=== PATIENT | male | born 1990 | race Two or more races ===

== ENCOUNTER 2021-01-27 10:33 | Inpatient (IN) | payer OTHER ==
[~2021-01-27] VITALS: Ht 167.6 cm; Wt 58.3 kg
--- NOTE | 2021-01-27 10:50 | NUR ---
PT BIB [facility] FROM HOME FOR C/O N/V/D SINCE THIS AM. PER PT & EMS, HE HAD 2 SCOOPS OF PROTEIN POWDER YESTERDAY AND HAS HAD SIMILAR REACTION IN THE PAST AFTER TAKING PROTEIN POWDER. 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 FSBS WAS 162 PER EMS, OTHER VSS, HR 60s SR. PT ARRIVES TO ED PALE, DIAPHORETIC, ACTIVELY VOMITING AND HAD DIARRHEA, YELLING D/T ABD PAIN. EKG DONE. POC RV'WD WITH PT. AWAITING ERP.
[2021-01-27] MEDS ORDERED: ONDANSETRON 2MG/ML, 2ML ONE (11:20)
[2021-01-27] MEDS ORDERED: MORPHINE SULFATE 4 MG/ML, 1ML ONE ×2 (11:20→12:46)
[2021-01-27] MEDS: MORPHINE SULFATE 4 MG/ML, 1ML IVPush PRN ×2 (11:23→12:47)
[2021-01-27] MEDS ORDERED: ONDANSETRON 2MG/ML, 2ML IVPush ONE (11:30)
[2021-01-27] MEDS ORDERED: SODIUM CHLORIDE 0.9% 1,000ML IVBOLUS ONE (11:30)
[2021-01-27] MEDS ORDERED: SODIUM CHLORIDE FLUSH 10ML SYR IVF ONE (11:30)
[2021-01-27] MEDS ORDERED: SODIUM CHLORIDE 0.9% 1,000 ML IV ONE ×2 (11:30→15:00)
[2021-01-27 11:33] LABS: MEAN CORPUSCULAR HEMOGLOBIN 31.1 pg (27.5-34.5); MEAN PLATELET VOLUME 10.6 fL (7.4-10.4); PLATELET COUNT 262 x10^3/uL (130-400); RED BLOOD COUNT 5.68 x10^6/uL (4.38-5.82); RED CELL DISTRIBUTION WIDTH 13.7 % (9.4-14.8)
--- NOTE | 2021-01-27 11:34 | NUR ---
PT MEDICATED PER ORDERS. 1L NS BOLUS INFUSING. VERBALIZED IMMEDIATE RELIEF AFTER MORPHINE.
[2021-01-27 11:50] LABS: ALBUMIN 5.8 g/dL (3.4-5.0); ANION GAP 11 mmol/L (5-15); CALCIUM 11.1 mg/dL (8.5-10.1); CHLORIDE 103 mmol/L (98-107)
[2021-01-27 11:54] LABS: ALANINE AMINOTRANSFERASE 54 U/L (12-78); ALKALINE PHOSPHATASE 96 U/L (45-117); BILIRUBIN,TOTAL 1.6 mg/dL (0.2-1.0); CREATINE KINASE, TOTAL 251 U/L (39-308); CREATININE 1.58 mg/dL (0.7-1.3); TOTAL PROTEIN 9.3 g/dL (6.4-8.2)
[2021-01-27 11:56] LABS: MD YES
[2021-01-27 12:00] LABS: BAND#(MANUAL) 1.86 x10^3/uL; BANDS%(MANUAL) 7 % (0-7); LYMPHS% (MANUAL) 3 % (22-44); METAMYELOCYTES# (MANUAL) 0.27 x10^3/uL (0-0); METAMYELOCYTES% (MANUAL) 1 % (0-1); MONOS#(MANUAL) 0.27 x10^3/uL (0.3-2.7); MONOS% (MANUAL) 1 % (2-9); SEG#(MANUAL) 23.32 x10^3/uL (1.8-6.8); SEGS% (MANUAL) 88 % (42-75)
[2021-01-27 12:01] LABS: <PLATELET ESTIMATE> ADEQUATE; <RBC MORPHOLOGY> NORMAL; LARGE PLATELETS 1+; PMNS WITH VACUOLES 1+
--- NOTE | 2021-01-27 12:07 | NUR ---
pt refused CT at 12:00 Wanted to do later.
--- NOTE | 2021-01-27 12:49 | NUR ---
PT SLEEPING IN GURNEY, AWAKENS TO VOICE. REQUESTED SECOND DOSE OF MORPHINE PRIOR TO CT. ERP AWARE PT'S HR DROPS TO 40s AFTER MORPHINE. WILL GIVE ONLY 2MG PER ERP. PT ALSO REQUESTING WATER. RV'WD PLAN FOR CT WITH PT; NPO FOR NOW. PT REMAINS SOMEWHAT DIAPHORETIC. IVF INFUSING.
--- NOTE | 2021-01-27 13:13 | NUR ---
PT TO CT VIA [facility].
--- NOTE | 2021-01-27 13:33 | NUR ---
PT BACK FROM CT. INFORMED OF NEED FOR URINE SAMPLE, INSTRUCTED ON CLEAN CATCH URINE SAMPLE.
[2021-01-27 14:21] LABS: MICROSCOPIC NOT IND
[2021-01-27] MEDS ORDERED: HALOPERIDOL 5 MG/ML ONE (14:52)
[2021-01-27] MEDS ORDERED: VANCOMYCIN PER PHARMACY MC ONE (15:00)
[2021-01-27] MEDS ORDERED: SODIUM CHLORIDE FLUSH 10ML SYR IVF PRN (15:00)
[2021-01-27] MEDS ORDERED: HALOPERIDOL 5 MG/ML IV ONE (15:00)
[2021-01-27] MEDS ORDERED: CEFEPIME 1 GM in DEXTROSE 5% 50 ML IVPB ONE (15:00)
[2021-01-27] MEDS ORDERED: VANCOMYCIN 1,400 MG in SODIUM CHLORIDE 0.9% 250 ML IV ONE (15:00)
--- NOTE | 2021-01-27 15:00 | NUR ---
PT REPORTED DAILY MARIJUANA USE TO ERP. DENIES OTHER DRUG USE.
--- NOTE | 2021-01-27 15:24 | NUR ---
PT STILL HAVING INTERMITTENT VOMITING/DRY HEAVING. MEDICATED WITH HALDOL PER ORDERS. MIVF INFUSING. ABX INFUSING.
[2021-01-27] MEDS ORDERED: VANCOMYCIN PER PHARMACY MC PRN (15:30)
[2021-01-27] MEDS ORDERED: ENALAPRILAT 1.25 MG/ML, 2ML IVPush PRN (15:30)
[2021-01-27] MEDS ORDERED: ACETAMINOPHEN 325 MG TABLET PO PRN (15:30)
--- NOTE | 2021-01-27 15:30 | NUR ---
PT C/O ABD PAIN AGAIN. MEDICATED WITH REMAINDER OF MORPHINE DOSE (2MG). TO BE TRANSPORTED UPSTAIRS SOON. PT UNDERSTANDS POC. PT HAS REFUSED CHANGING OUT OF HIS PANTS AT THIS TIME.
[2021-01-27 15:42] LABS: TROPONIN I < 0.015 ng/mL (0.000-0.045)
[2021-01-27 17:00] VITALS: BP 137/94
[2021-01-27] MEDS: HEPARIN 5,000 UNITS/ML, 1ML SQ SCH (17:07)
[2021-01-27 17:26] VITALS: BP 137/94
[2021-01-27] MEDS ORDERED: PHARMACOKINETIC MONITORING MC PRN (17:30)
[2021-01-27] MEDS ORDERED: PHARMACOKINETIC CONSULTATION MC ONE (17:30)
[2021-01-27 19:12] VITALS: BP 93/55
[2021-01-27] MEDS: ONDANSETRON 2MG/ML, 2ML IVPush PRN (19:35)
[2021-01-27] MEDS: LACTATED RINGERS 1,000 ML IV SCH (19:35)
[2021-01-27 20:25] VITALS: BP 114/68
[2021-01-27 21:22] LABS: TROPONIN I < 0.015 ng/mL (0.000-0.045)
[2021-01-27] MEDS: morphine SULFATE 10 MG/ML, 1ML IVPush PRN (23:09)
[2021-01-28 00:24] VITALS: BP 112/67
[2021-01-28] MEDS: HEPARIN 5,000 UNITS/ML, 1ML SQ SCH ×3 (01:15→20:00)
[2021-01-28] MEDS: PROMETHAZINE 25 MG/ML, 1ML IM PRN ×2 (01:26→04:30)
[2021-01-28] MEDS: morphine SULFATE 10 MG/ML, 1ML IVPush PRN ×3 (03:04→10:02)
[2021-01-28] MEDS: LACTATED RINGERS 1,000 ML IV SCH ×3 (03:35→21:40)
[2021-01-28 05:38] LABS: MEAN CORPUSCULAR HEMOGLOBIN 31.6 pg (27.5-34.5); MEAN CORPUSCULAR HGB CONC 34.5 g/dL (33.2-36.2); PLATELET COUNT 181 x10^3/uL (130-400); RED BLOOD COUNT 4.44 x10^6/uL (4.38-5.82); RED CELL DISTRIBUTION WIDTH 13.6 % (9.4-14.8)
[2021-01-28 05:52] LABS: CHLORIDE 111 mmol/L (98-107)
[2021-01-28 06:02] LABS: ALANINE AMINOTRANSFERASE 38 U/L (12-78); ALBUMIN 3.8 g/dL (3.4-5.0); ALKALINE PHOSPHATASE 62 U/L (45-117); ANION GAP 6 mmol/L (5-15); BILIRUBIN,TOTAL 0.9 mg/dL (0.2-1.0); CALCIUM 8.5 mg/dL (8.5-10.1); CREATININE 1.11 mg/dL (0.7-1.3); TOTAL PROTEIN 6.8 g/dL (6.4-8.2)
[2021-01-28 06:21] LABS: MD YES
[2021-01-28 06:22] LABS: <PLATELET ESTIMATE> DECREASED; <RBC MORPHOLOGY> NORMAL; BAND#(MANUAL) 2.06 x10^3/uL; BANDS%(MANUAL) 12 % (0-7); LYMPH#(MANUAL) 1.03 x10^3/uL (1-3.4); LYMPHS% (MANUAL) 6 % (22-44); MONOS#(MANUAL) 0.34 x10^3/uL (0.3-2.7); MONOS% (MANUAL) 2 % (2-9); SEG#(MANUAL) 13.76 x10^3/uL (1.8-6.8); SEGS% (MANUAL) 80 % (42-75)
[2021-01-28 06:23] LABS: LARGE PLATELETS 1+
[2021-01-28 09:04] VITALS: BP 100/51
[2021-01-28] MEDS: PANTOPRAZOLE 40 MG IV IVPush SCH (10:02)
[2021-01-28] MEDS: ONDANSETRON 2MG/ML, 2ML IVPush PRN (10:02)
[2021-01-28] MEDS: SUCRALFATE 1 GM/10 ML UDC PO SCH ×4 (10:02→20:02)
[2021-01-28] MEDS: VANCOMYCIN 1,100 MG in SODIUM CHLORIDE 0.9% 250 ML IV SCH (11:16)
[2021-01-28 15:24] VITALS: BP 110/64
[2021-01-28] MEDS ORDERED: CEFTRIAXONE 1,000 MG in DEXTROSE 5% 50 ML IVPB SCH (15:30)
[2021-01-28 15:56] LABS: MICROSCOPIC NOT IND
[2021-01-28 19:22] VITALS: BP 108/68
[2021-01-28] MEDS: MELATONIN 5 MG TABLET PO PRN (21:41)
[2021-01-29 00:29] VITALS: BP 111/82
[2021-01-29] MEDS: HEPARIN 5,000 UNITS/ML, 1ML SQ SCH ×4 (04:00→20:29)
[2021-01-29] MEDS: LACTATED RINGERS 1,000 ML IV SCH ×2 (05:25→13:51)
[2021-01-29] MEDS: VANCOMYCIN 1,100 MG in SODIUM CHLORIDE 0.9% 250 ML IV SCH (05:25)
[2021-01-29 05:41] LABS: BASOPHILS % (AUTO) 0 % (0-1); EOSINOPHILS % (AUTO) 1 % (1-7); LYMPHOCYTES % (AUTO) 24 % (22-44); MEAN CORPUSCULAR HEMOGLOBIN 31.3 pg (27.5-34.5); MEAN CORPUSCULAR HGB CONC 34.2 g/dL (33.2-36.2); MEAN PLATELET VOLUME 10.7 fL (7.4-10.4); MONOCYTES % (AUTO) 11 % (2-9); NEUTROPHILS % (AUTO) 63 % (42-75); PLATELET COUNT 164 x10^3/uL (130-400); RED BLOOD COUNT 4.36 x10^6/uL (4.38-5.82); RED CELL DISTRIBUTION WIDTH 13.3 % (9.4-14.8)
[2021-01-29 05:46] LABS: ALANINE AMINOTRANSFERASE 32 U/L (12-78); ALBUMIN 3.5 g/dL (3.4-5.0); CALCIUM 8.8 mg/dL (8.5-10.1); CHLORIDE 110 mmol/L (98-107); CREATININE 1.04 mg/dL (0.7-1.3)
[2021-01-29 05:48] LABS: ALKALINE PHOSPHATASE 49 U/L (45-117); BILIRUBIN,TOTAL 0.4 mg/dL (0.2-1.0); TOTAL PROTEIN 6.1 g/dL (6.4-8.2)
[2021-01-29 05:55] LABS: ANION GAP 4 mmol/L (5-15)
[2021-01-29 06:23] VITALS: BP 114/68
[2021-01-29] MEDS: SUCRALFATE 1 GM/10 ML UDC PO SCH ×4 (06:24→20:29)
[2021-01-29] MEDS: morphine SULFATE 10 MG/ML, 1ML IVPush PRN ×4 (06:25→23:31)
[2021-01-29 06:49] LABS: MD SCAN
[2021-01-29] MEDS: PANTOPRAZOLE 40 MG IV IVPush SCH (09:35)
[2021-01-29 12:25] VITALS: BP 121/76
[2021-01-29 19:20] VITALS: BP 129/83
[2021-01-29] MEDS: MELATONIN 5 MG TABLET PO PRN (21:40)
[2021-01-29] MEDS: ONDANSETRON 2MG/ML, 2ML IVPush PRN (23:31)
[2021-01-30 01:28] VITALS: BP 132/86
[2021-01-30] MEDS: morphine SULFATE 10 MG/ML, 1ML IVPush PRN (04:55)
[2021-01-30] MEDS: HEPARIN 5,000 UNITS/ML, 1ML SQ SCH (04:56)
[2021-01-30] MEDS: LACTATED RINGERS 1,000 ML IV SCH (04:56)
[2021-01-30 05:13] LABS: BASOPHILS % (AUTO) 0 % (0-1); EOSINOPHILS % (AUTO) 3 % (1-7); LYMPHOCYTES % (AUTO) 33 % (22-44); MEAN CORPUSCULAR HEMOGLOBIN 31.6 pg (27.5-34.5); MEAN CORPUSCULAR HGB CONC 34.6 g/dL (33.2-36.2); MEAN PLATELET VOLUME 10.7 fL (7.4-10.4); MONOCYTES % (AUTO) 11 % (2-9); NEUTROPHILS % (AUTO) 54 % (42-75); PLATELET COUNT 168 x10^3/uL (130-400); RED CELL DISTRIBUTION WIDTH 13.5 % (9.4-14.8)
[2021-01-30 05:24] LABS: ALBUMIN 3.3 g/dL (3.4-5.0); ANION GAP 3 mmol/L (5-15); CALCIUM 8.3 mg/dL (8.5-10.1); CHLORIDE 110 mmol/L (98-107)
[2021-01-30 05:26] LABS: MD NO
[2021-01-30 05:34] LABS: ALANINE AMINOTRANSFERASE 31 U/L (12-78); ALKALINE PHOSPHATASE 48 U/L (45-117); BILIRUBIN,TOTAL 0.6 mg/dL (0.2-1.0); CREATININE 1.04 mg/dL (0.7-1.3); TOTAL PROTEIN 6.2 g/dL (6.4-8.2)
[2021-01-30 05:47] LABS: HCT (SEDRATE) 39.3 % (39.2-51.8)
[2021-01-30] MEDS ORDERED: PANTOPRAZOLE 40MG TABLET PO SCH (06:00)
[2021-01-30 06:59] VITALS: BP 112/67
[2021-01-30] MEDS: SUCRALFATE 1 GM/10 ML UDC PO SCH (08:01)
[2021-01-30] MEDS ORDERED: OMEP-110 PO (10:02)
[2021-01-30] MEDS ORDERED: ONDA4TAB13 SL (10:02)
[2021-01-30] MEDS ORDERED: SUCR1ORA5 PO (10:02)
[2021-01-30] MEDS ORDERED: HYDR-3241 PO (10:02)
== END 2021-01-30 12:27 | disposition home or self-care (01) | DRG 391 ==
LOC: ED 15:00 → EDIP 15:02 → 4EST 16:43 → DCLOUNGE 01-30 12:22
PROVIDERS: ADMIT Hospitalist; ATTEND Family Medicine
DX: K29.70 Gastritis, unspecified, without bleeding (principal); N17.0 Acute kidney failure with tubular necrosis; E87.2 Acidosis; F12.90 Cannabis use, unspecified, uncomplicated; N43.3 Hydrocele, unspecified; Z90.5 Acquired absence of kidney; K20.90 Esophagitis, unspecified without bleeding; K52.9 Noninfective gastroenteritis and colitis, unspecified
CPT/HCPCS: 36415; 71045; 74177; 80053; 81003; 82550; 83605; 83690; 83735; 84100; 84484; 85025; 85651; 86140; 87040; 93005; 96361; 96374; 96375; 96376; G0378; J0692; J0696; J1644; J2405; J2550; J3370; C9113; J1630; J2270; J7030; J7050; J7120